=== PATIENT | female | born 1990 | race Caucasian/White ===

== ENCOUNTER → 2017-07-28 | Outpatient (CLI) | payer BC | END | disposition home or self-care (01) | LOC: LABWHC1 16:34 | PROVIDERS: ATTEND Otolaryngology | DX: J30.89 Other allergic rhinitis (principal) | CPT/HCPCS: 36415 ==

== ENCOUNTER 2019-03-25 06:05 | Inpatient (IN) | payer BC ==
[2019-03-25] MEDS ORDERED: LIDOCAINE 0.5% (PF) 5 MG/ML (50 ML SDV) SQ PRN (06:18)
[2019-03-25] MEDS ORDERED: OXYTOCIN 10 UNIT/ML 1 ML VIAL IM PRN (06:18)
[2019-03-25] MEDS ORDERED: METHYLERGONOVINE 0.2 MG/ML 1 ML AMP IM PRN (06:18)
[2019-03-25] MEDS ORDERED: TERBUTALINE 1 MG/ML VIAL SQ PRN (06:18)
[2019-03-25] MEDS ORDERED: CARBOPROST TROMETHAMINE 250 MCG/ML 1 ML AMP IM PRN (06:18)
[2019-03-25] MEDS ORDERED: OXYTOCIN 30 UNITS/500 ML NS 30 UNIT in SALINE 1 500ML.BAG IV SCH (06:30)
[2019-03-25] MEDS: LACTATED RINGERS 1,000 ML IV SCH ×4 (06:32→23:57)
[2019-03-25 07:01] LABS: HCT 40.4 % (34.0-46.0); MCH 32.3 pg (25.0-35.0); MCHC 34.6 g/dL (31.0-37.0); MCV 93.3 fL (80.0-100.0); Mean Platelet Volume 11.8; Platelet Count 133 k/uL (150-450); RBC 4.34 m/uL (3.80-5.40); WBC 8.7 k/uL (3.8-10.6)
[2019-03-25 07:18] LABS: Eosinophils # (M) 0.26 k/uL (0-0.7); Lymphocytes # (M) 1.91 k/uL (1.0-4.8); Monocytes # (M) 0.52 k/uL (0-1.0); Neutrophils % (M) 69 %; Nucleated Red Blood Cells 0 /100 WBC (0-0); Total Cells Counted 100
[2019-03-25 07:19] LABS: Large Platelets Present
[2019-03-25] MEDS ORDERED: BUTORPHANOL 1 MG/ML 1 ML VIAL IV PRN (08:12)
--- NOTE | 2019-03-25 08:16 | P.HPOB ---
History of Present Illness H&P Date: 03/25/19 Chief Complaint: IUP @ 39 5/7 weeks This is a 28-year-old 1 para 0 at 39-5/7 weeks that presents to labor and delivery for induction of labor. Patient did conceive with Femara. Patient has a known history of hypothyroidism and has been stable with 25 g of Synthro id. This morning patient notes good movement she notes mild contractions denies loss of fluid or vaginal bleeding. On bloodwork this patient has a blood type of O+, rubella status immune, RPR nonreactive, hepatis B surface antigen negative, HIV negative, 1 hour gestational diabetes screen 122, group beta strep +03/01/19. Review of Systems Constitutional: Denies chills, Denies fatigue, Denies fever Ears, nose, mouth and throat: Denies headache Cardiovascular: Reports leg edema Respiratory: Denies dyspnea Gastrointestinal: Reports constipation, Denies diarrhea, Denies nausea, Denies vomiting Genitourinary: Reports Past Medical History History of Any Multi-Drug Resistant Organisms: None Reported Past Anesthesia/Blood Transfusion Reactions: No Reported Reaction Smoking Status: Never smoker - Past Family History Mother History Unknown: Yes Family Medical History: No Reported History Medications and Allergies Home Medications Medication Instructions Recorded Confirmed Type Pnv 11/Iron Fum/Folic Acid/Om3 1 each PO 03/25/19 History [Virt-Adama Dha Softgel] Allergies Allergy/AdvReac Type Severity Reaction Status Date / Time Penicillins Allergy Rash/Hives Verified 03/25/19 06:16 Exam Osteopathic Statement: *. No significant issues noted on an osteopathic structural exam other than those noted in the History and Physical/Consult. Vital Signs Temp Pulse Resp BP Pulse Ox 03/25/19 06:11 96.8 F L 97 16 112/73 97 Intake and Output 03/24/19 03/25/19 03/25/19 22:59 06:59 14:59 Other: Weight 75.75 kg Targeted physical exam is performed on this date in general this a well- nourished well-developed female in no acute distress, breathing is noted to be nonlabored heart has regular rate and rhythm, abdomen is gravid and appropriate for gestational age, heart tones are noted to be category 1 and she is justus irregularly. On cervical exam she is 2/50/-3 amniotomy is performed and clear fluid was obtained. Results Result Diagrams: 03/25/19 06:20 Abnormal Lab Results - Last 24 Hours (Table) 03/25/19 Range/Units 06:20 Plt Count 133 L (150-450) k/uL Assessment and Plan (1) Term Current Visit: Yes Status: Acute Code(s): Z34.90 - ENCNTR FOR SUPRVSN OF NORMAL , UNSP, UNSP TRIMESTER SNOMED Code(s): 85899270 (2) Positive GBS test Current Visit: Yes Status: Acute Code(s): B95.1 - STREPTOCOCCUS, GROUP B, CAUSING DISEASES CLASSD ELSR SNOMED Code(s): 589310884 Plan: Patient is admitted to labor and delivery Pitocin induction of labor is begun per hospital protocol, antibiotics are begun secondary to GBS culture being positive. Epidural versus Stadol analgesia is discussed with patient if she makes cervical change she will elect epidural. Anesthesia will be notified. Anticipate spontaneous vaginal delivery later today.
[2019-03-25] MEDS ORDERED: ROPIVACAINE 100 MG, fentaNYL (PF) 200 MCG in SODIUM CHLORIDE 0.9% 76 ML EPIDURAL ONE (13:37)
[2019-03-25] MEDS ORDERED: CITRIC ACID-SODIUM CITRATE 15 ML CUP PO ONE (19:53)
[2019-03-25] MEDS ORDERED: DEXAMETHASONE SOD PHOS (MDV) 100 MG/10 ML VIAL ONE (20:12)
[2019-03-25] MEDS ORDERED: OXYTOCIN 10 UNIT/ML 1 ML VIAL ONE (20:12)
[2019-03-25] MEDS ORDERED: ONDANSETRON 4 MG/2 ML VIAL ONE (20:12)
[2019-03-25] MEDS ORDERED: NALBUPHINE 10 MG/ML (1 ML AMP) ONE (20:12)
[2019-03-25] MEDS ORDERED: ZOLPIDEM 5 MG TAB PO PRN (20:59)
[2019-03-25] MEDS ORDERED: SIMETHICONE 80 MG CHEWABLE PO PRN (20:59)
[2019-03-25] MEDS ORDERED: METOCLOPRAMIDE 5 MG/ML 2 ML VIAL IVP PRN (20:59)
[2019-03-25] MEDS ORDERED: diphenhydrAMINE 25 MG CAP PO PRN (20:59)
[2019-03-25] MEDS ORDERED: HYDROcodone/APAP 5-325MG 1 EACH TAB PO PRN (20:59)
[2019-03-25] MEDS ORDERED: ACETAMINOPHEN IV (For NPO) 1,000 MG in EMPTY BAG 1 BAG IVPB ONE (20:59)
[2019-03-25] MEDS ORDERED: diphenhydrAMINE 50 MG/ML 1 ML VIAL IVP PRN ×2 (20:59)
[2019-03-25] MEDS ORDERED: diphenhydrAMINE 50 MG CAP PO PRN (20:59)
[2019-03-25] MEDS ORDERED: NALOXONE 0.4 MG/ML 1 ML VIAL IV PRN (20:59)
[2019-03-25] MEDS ORDERED: ONDANSETRON 4 MG/2 ML VIAL IVP PRN (20:59)
[2019-03-25] MEDS ORDERED: IBUPROFEN IV 800 MG in SODIUM CHLORIDE 0.9% 250 ML IV ONE (21:00)
[2019-03-25] MEDS ORDERED: OXYTOCIN 20 UNITS/1000 ML NS 1,000 ML IV SCH (21:00)
--- NOTE | 2019-03-25 21:05 | P.OP ---
Date of Procedure: 03/25/19 Preoperative Diagnosis: IUP at 39 and 5/sevenths weeks, arrest of dilation 9 hours Postoperative Diagnosis: same Procedure(s) Performed: primary low transverse section Anesthesia: epidural Surgeon: Solange Townsend Audit Spec #1: Tony Kaiser Estimated Blood Loss (ml): 200 IV fluids (ml): 1,200 Urine output (ml): 100 Pathology: none sent Condition: stable Disposition: other (labor suite) Indications for Procedure: this 28-year-old 1 para 0 at 39-5/7 weeks presented to labor and delivery for induction of labor this morning. Patient was noted to be 2/50/-3 station. Pitocin induction of labor was begun per hospital protocol, once regular contractions were noted amniotomy was performed and clear fluid was obtained. Patient made very minimal change around 11:00 was noted to be 3-4 cm, patient was uncomfortable at that time and requested epidural placement. Patient had epidural placed by the anesthesia department. At approximately 2100 this evening she remained 3-4 cm she was given the option of waiting versus proceeding with primary for arrest of dilation/arrest of first stage of labor patient elected primary . Operative Findings: normal uterus tubes and ovaries were appreciated girl delivered at 2032 weight of 7 lbs. 9 oz. with Apgars of 9 and 9 at one and 5 minutes respectively. Description of Procedure: patient was taken back to the operating suite where epidural anesthesia was found to be adequate. She was prepped and draped in normal sterile fashion in the dorsal supine position. A Pfannenstiel skin incision was made with the scalpel and carried through to the underlying layer of fascia. The fascia was then incised in the midline and extended laterally. Superior aspect of the fascial incision was then grasped with Angela clamps, elevated and underlying rectus muscle was dissected off sharply. Attention was then turned the inferior aspect of the fascial incision which was grasped with Angela clamps, elevated and underlying rectus muscles dissected off sharply. The rectus muscles were in the midline the peritoneum was identified and entered. The bladder blade was then inserted into the abdomen. The vesicouterine peritoneum was identified and the bladder flap was created using sharp dissection the bladder blade was then reinserted. The scalpel was then used to enter the uterus the infant was delivered in a vertex presentation atraumatically the umbilical cord was then doubly clamped and cut and the was handed off to awaiting RN. The placenta was then removed manually than the uterus was cleared of all clots and debris. The uterine incision was then closed with 0 Vicryl in a running locked fashion from one lateral edge the other in the other lateral edge the other. Hemostasis was appreciated. The pelvis then copiously irrigated and the uterus was returned to the abdomen. Inspection the hysterotomy incision hemostasis was appreciated. The gutters were cleared of all clots and debris. The peritoneum was then loosely reapproximated and the fascia was closed with 0 Vicryl in a running fashion from one lateral edge the other. The subcutaneous tissue was irrigated hemostasis was appreciated. This was closed with 3-0 Vicryl in a running fashion. The skin was then closed with 4-0 Vicryl in a subcuticular fashion. Steri-Strips and sterile dressings were applied. All counts were correct 2 patient and infant tolerated delivery well and are resting comfortably.
[2019-03-26] MEDS: LACTATED RINGERS 1,000 ML IV SCH (00:34)
[2019-03-26 06:22] LABS: Basophils % (A) 0 %; Eosinophils # (A) 0.1 k/uL (0-0.7); Eosinophils % (A) 1 %; HCT 36.2 % (34.0-46.0); HGB 12.5 gm/dL (11.4-16.0); Lymphocytes % (A) 5 %; MCH 32.3 pg (25.0-35.0); MCHC 34.6 g/dL (31.0-37.0); MCV 93.4 fL (80.0-100.0); Mean Platelet Volume 13.2; Monocytes # (A) 0.7 k/uL (0-1.0); Monocytes % (A) 4 %; Neutrophils # (A) 17.4 k/uL (1.3-7.7); Neutrophils % (A) 90 %; Platelet Count 137 k/uL (150-450); RBC 3.88 m/uL (3.80-5.40); RDW 12.9 % (11.5-15.5); WBC 19.4 k/uL (3.8-10.6)
[2019-03-26 07:05] LABS: Large Platelets Present
[2019-03-26] MEDS: IBUPROFEN 600 MG TAB PO PRN ×3 (07:55→22:25)
[2019-03-26] MEDS: SENNOSIDES-DOCUSATE SODIUM 1 EACH TAB PO SCH ×2 (07:56→19:59)
--- NOTE | 2019-03-26 08:39 | P.PN ---
Progress Note - Text 04/05 828am 28-year-old female status post . Patient had an epidural catheter that was dose after the procedure puts Duramorph. Patient has a VAS of 1 with no complains of nausea vomiting or pruritus
--- NOTE | 2019-03-26 10:08 | P.PNOBGPC ---
Subjective - Subjective Principal diagnosis: POD 1 LTCS arrest of descent Interval history: patient has done well overnight. She is ambulating and voiding without difficulty. She is awaiting spontaneous void status post Petersen removal this morning. She is tolerating clear liquids without nausea or vomiting. She states her lochia is minimal. She is breast-feeding with some difficulty. Patient reports: Reports appetite normal, Reports pain well controlled, Reports ambulating normally [place]: doing well Objective - Vital Signs Latest vital signs: Vital Signs Temp Pulse Resp BP Pulse Ox 03/26/19 03:30 97.5 F L 73 16 126/76 98 03/25/19 23:00 97.3 F L 77 16 114/61 98 03/25/19 22:30 93 16 98/53 98 03/25/19 22:00 78 16 120/66 99 03/25/19 21:45 97.2 F L 71 16 133/78 100 03/25/19 21:30 96 16 117/62 100 03/25/19 21:15 98.3 F 99 16 126/65 100 03/25/19 21:00 97.6 F 93 16 130/60 99 Intake and Output 03/25/19 03/26/19 03/26/19 22:59 06:59 14:59 Intake Total 1400 1050 Output Total 100 1900 Balance 1300 -850 Intake: IV 1200 750 Oxytocin 20 Units/1000 ml 750 Ns 1,000 ml @ Per Protocol IV .Q0M [facility] Rx#: [id number] Oral 300 Blood Product 200 Output: Urine 100 1900 petersen 800 - Exam Extremities: Present: normal, edema Abdomen: Present: normal appearance Incision: Present: normal, dry Uterus: Present: normal, firm - Labs Labs: Abnormal Lab Results - Last 24 Hours (Table) 03/26/19 Range/Units 06:07 WBC 19.4 H (3.8-10.6) k/uL Plt Count 137 L (150-450) k/uL Neutrophils # 17.4 H (1.3-7.7) k/uL Assessment and Plan (1) Term Current Visit: Yes Status: Acute Code(s): Z34.90 - ENCNTR FOR SUPRVSN OF NORMAL , UNSP, UNSP TRIMESTER SNOMED Code(s): 28978960 (2) Positive GBS test Current Visit: Yes Status: Acute Code(s): B95.1 - STREPTOCOCCUS, GROUP B, CAUSING DISEASES CLASSD ELSWHR SNOMED Code(s): 849345806 (3) Arrest of dilation, delivered, current hospitalization Current Visit: Yes Status: Acute Code(s): O62.1 - SECONDARY UTERINE INERTIA SNOMED Code(s): 35332828 (4) S/P section Current Visit: Yes Status: Acute Code(s): Z98.891 - HISTORY OF UTERINE SCAR FROM PREVIOUS SURGERY SNOMED Code(s): 661472296 Plan: patient is doing well postoperatively. We will encourage increased ambulation, discontinue IV fluids and continue routine postoperative care. If patient continues to do well we will anticipate discharge home tomorrow.
[2019-03-27] MEDS: ACETAMINOPHEN TAB 325 MG TAB PO PRN ×2 (03:28→11:05)
[2019-03-27] MEDS: IBUPROFEN 600 MG TAB PO PRN ×2 (05:32→14:24)
[2019-03-27] MEDS: SENNOSIDES-DOCUSATE SODIUM 1 EACH TAB PO SCH (08:14)
--- NOTE | 2019-03-27 08:44 | P.DS ---
Providers Date of admission: 03/25/19 06:05 Expected date of discharge: 03/27/19 Attending physician: Solange Townsend Primary care physician: Stated None - Discharge Diagnosis(es) (1) Term Current Visit: Yes Status: Acute (2) Positive GBS test Current Visit: Yes Status: Acute (3) Arrest of dilation, delivered, current hospitalization Current Visit: Yes Status: Acute (4) S/P section Current Visit: Yes Status: Acute Hospital Course: This pleasant 28-year-old 1 para 0 presented to labor and delivery at 39-5/7 weeks for induction of labor. Patient was noted to be 2/50/-3 station. Pitocin was begun per hospital protocol. Once regular contractions were noted amniotomy was performed and clear fluid was obtained. Patient made minimal change throughout the day and after proximally 9 hours of no change patient was counseled on primary versus continuing to wait. Patient elected primary given arrest of dilation and descent. Patient was taken to the operating suite for primary low transverse section for further details on the please see the operative report. Patient's postop erative course has been uneventful. On this postop day #2 she is ambulating and voiding without difficulty. She is tolerating a regular diet without nausea or vomiting. She is breast-feeding without difficulty. She states her pain is well-controlled with ibuprofen and Tylenol. Patient Condition at Discharge: Good Plan - Discharge Summary New Discharge Prescriptions: No Action Pnv 11/Iron Fum/Folic Acid/Om3 [Virt-Adama Dha Softgel] 1 each PO Discharge Medication List Pnv 11/Iron Fum/Folic Acid/Om3 [Virt-Adama Dha Softgel] 1 each PO 03/25/19 [History] Follow up Appointment(s)/Referral(s): Solange Townsend DO [Doctor of Osteopathic Medicine] - 1 Week Patient Instructions/Handouts: (DC), (GEN) Discharge Disposition: HOME SELF-CARE
[2019-03-27] MEDS: LACTATED RINGERS 1,000 ML IV SCH (09:49)
[2019-03-27 09:51] VITALS: RESP 16
[2019-03-27 16:31] VITALS: BP 112/44; PULSE 90; TEMP 98.1
== END 2019-03-27 17:30 | disposition home or self-care (01) | DRG 788 ==
LOC: 4FBP 06:05
PROVIDERS: ADMIT Obstetrics & Gynecology Obstetrics; ATTEND Obstetrics & Gynecology Obstetrics
PROC: 3E033VJ Introduction of Other Hormone into Peripheral Vein, Percutaneous Approach (ICD-10-PCS; 2019-03-25)
PROC: 10907ZC Drainage of Amniotic Fluid, Therapeutic from Products of Conception, Via Natural or Artificial Opening (ICD-10-PCS; 2019-03-25)
PROC: 00HU33Z Insertion of Infusion Device into Spinal Canal, Percutaneous Approach (ICD-10-PCS; 2019-03-25)
PROC: 3E0R3BZ Introduction of Anesthetic Agent into Spinal Canal, Percutaneous Approach (ICD-10-PCS; 2019-03-25)
PROC: 10D00Z1 Extraction of Products of Conception, Low, Open Approach (ICD-10-PCS; principal; 2019-03-25 20:28)
DX: O99.824 Streptococcus B carrier state complicating childbirth (principal); O62.0 Primary inadequate contractions; O99.284 Endocrine, nutritional and metabolic diseases complicating childbirth; E03.9 Hypothyroidism, unspecified; E28.2 Polycystic ovarian syndrome; Z37.0 Single live birth; Z3A.39 39 weeks gestation of pregnancy; Z79.899 Other long term (current) drug therapy; Z88.0 Allergy status to penicillin
CPT/HCPCS: 85025; 86850; 86900; 86901

== ENCOUNTER 2020-08-28 06:15 | Inpatient (IN) | payer BC ==
[2020-08-25 15:36] VITALS: BMI 32.2
[2020-08-28] MEDS ORDERED: CITRIC ACID-SODIUM CITRATE 15 ML CUP PO ONE (06:44)
[2020-08-28] MEDS ORDERED: LACTATED RINGERS 1,000 ML IV SCH (06:45)
[2020-08-28] MEDS ORDERED: GENTAMICIN 280 MG in SODIUM CHLORIDE 0.9% 100 ML IVPB ONE (07:00)
[2020-08-28] MEDS ORDERED: CLINDAMYCIN 900 MG in DEXTROSE 5% IN WATER 50 ML IVPB ONE ×2 (07:00)
[2020-08-28 07:26] LABS: Basophils % (A) 0 %; Eosinophils # (A) 0.3 k/uL (0-0.7); Eosinophils % (A) 3 %; HCT 37.6 % (34.0-46.0); HGB 12.9 gm/dL (11.4-16.0); Lymphocytes # (A) 1.6 k/uL (1.0-4.8); Lymphocytes % (A) 19 %; MCHC 34.2 g/dL (31.0-37.0); MCV 93.6 fL (80.0-100.0); Mean Platelet Volume 12.2; Monocytes # (A) 0.6 k/uL (0-1.0); Monocytes % (A) 8 %; Neutrophils # (A) 5.7 k/uL (1.3-7.7); Neutrophils % (A) 68 %; Platelet Count 133 k/uL (150-450); RBC 4.02 m/uL (3.80-5.40); RDW 13.2 % (11.5-15.5); WBC 8.4 k/uL (3.8-10.6)
[2020-08-28 07:55] LABS: Large Platelets Present
[2020-08-28] MEDS ORDERED: PHENYLEPHRINE-0.9% NACL SYG 1,000 MCG/10 ML SYRINGE ONE (08:09)
[2020-08-28] MEDS ORDERED: NALBUPHINE 10 MG/ML (1 ML AMP) ONE (08:09)
[2020-08-28] MEDS ORDERED: fentaNYL (PF) 50 MCG/ML 2 ML AMP ONE (08:09)
[2020-08-28] MEDS ORDERED: MORPHINE SULFATE (PF) 0.3 MG/0.3 ML SYR ONE (08:09)
[2020-08-28] MEDS ORDERED: ONDANSETRON 4 MG/2 ML VIAL ONE (08:09)
[2020-08-28] MEDS ORDERED: METOCLOPRAMIDE 5 MG/ML 2 ML VIAL IVP PRN (09:01)
[2020-08-28] MEDS ORDERED: NALOXONE 0.4 MG/ML 1 ML VIAL IV PRN (09:01)
[2020-08-28] MEDS ORDERED: SIMETHICONE 80 MG CHEWABLE PO PRN (09:01)
[2020-08-28] MEDS ORDERED: diphenhydrAMINE 50 MG/ML 1 ML VIAL IVP PRN ×2 (09:01)
[2020-08-28] MEDS ORDERED: diphenhydrAMINE 25 MG CAP PO PRN (09:01)
[2020-08-28] MEDS ORDERED: ZOLPIDEM 5 MG TAB PO PRN (09:01)
[2020-08-28] MEDS ORDERED: ONDANSETRON 4 MG/2 ML VIAL IVP PRN (09:01)
[2020-08-28] MEDS ORDERED: diphenhydrAMINE 50 MG CAP PO PRN (09:01)
--- NOTE | 2020-08-28 09:06 | P.HPOB ---
History of Present Illness H&P Date: 08/28/20 Chief Complaint: IUP at 39 and 1/sevenths weeks, history of 1 desires repeat This is a 30-year-old 001 at 39 and one sevenths weeks that presents to labor and delivery for scheduled repeat section. Patient has been receiving routine care which has been essentially uncomplicated. Patient does have a history of hypothyroidism for which she takes Synthroid. Patient has noted good movement denies contractions vaginal bleeding or lo ss of fluid. On bloodwork this patient has a blood type of O+, rubella status immune, hepatitis B surface antigen negative, GBS negative RPR is nonreactive. Review of Systems Constitutional: Denies chills, Denies fatigue, Denies fever Ears, nose, mouth and throat: Denies headache Cardiovascular: Reports leg edema Respiratory: Denies dyspnea Gastrointestinal: Denies constipation, Denies diarrhea, Denies nausea, Denies vomiting Genitourinary: Reports Past Medical History Past Medical History: Thyroid Disorder Additional Past Medical History / Comment(s): PCOS, SCOLIOSIS History of Any Multi-Drug Resistant Organisms: None Reported Past Surgical History: Appendectomy, Breast Surgery, Section Additional Past Surgical History / Comment(s): LT BREAST BX-BENIGN, wisdom teeth removal Past Anesthesia/Blood Transfusion Reactions: Motion Sickness, Postoperative Nausea & Vomiting (PONV) Past Psychological History: No Psychological Hx Reported Smoking Status: Never smoker Past Alcohol Use History: None Reported Past Drug Use History: None Reported - Past Family History Mother History Unknown: Yes Family Medical History: No Reported History Medications and Allergies Home Medications Medication Instructions Recorded Confirmed Type Pnv 11/Iron Fum/Folic Acid/Om3 1 each PO DAILY 03/25/19 08/28/20 History [Virt-Adama Dha Softgel] Levothyroxine Sodium [Synthroid] 50 mcg PO DAILY 08/25/20 08/28/20 History Allergies Allergy/AdvReac Type Severity Reaction Status Date / Time Penicillins Allergy Rash/Hives Verified 08/28/20 07:09 Exam Osteopathic Statement: *. No significant issues noted on an osteopathic structural exam other than those noted in the History and Physical/Consult. Vital Signs Temp Pulse Resp BP Pulse Ox 08/28/20 06:43 98.0 F 76 16 119/67 98 Intake and Output 08/27/20 08/28/20 08/28/20 22:59 06:59 14:59 Other: Weight 74.843 kg Targeted physical exam is performed in this date and [employer] frames a well-nourished well-developed female in no acute distress, breathing is noted to be nonlabored, heart has regular rate and rhythm, abdomen is gravid and appropriate for gestational age, cervical exam is deferred, heart tones returned be category 1 and she is not justus. Results Result Diagrams: 08/28/20 06:55 Abnormal Lab Results - Last 24 Hours (Table) 08/28/20 Range/Units 06:55 Plt Count 133 L (150-450) k/uL Assessment and Plan (1) H/O section Current Visit: Yes Status: Acute Code(s): Z98.891 - HISTORY OF UTERINE SCAR FROM PREVIOUS SURGERY SNOMED Code(s): 581037187 (2) Term Current Visit: No Status: Acute Code(s): Z34.90 - ENCNTR FOR SUPRVSN OF NORMAL , UNSP, UNSP TRIMESTER SNOMED Code(s): 01758531 Plan: This is a 30-year-old with a history of a 1 at 39 and one sevenths weeks that presents for scheduled repeat section. Patient was counseled on risks of surgery including but not limited to infection, bleeding, damage to bladder, bowel, injury. Patient stated understanding and wished to proceed. Patient was taken back to the operating suite for scheduled repeat section.
--- NOTE | 2020-08-28 09:10 | P.OP ---
Date of Procedure: 08/28/20 Preoperative Diagnosis: IUP at 39 and one sevenths weeks, history of 1 desires repeat Postoperative Diagnosis: Same plus thin lower uterine segment. Procedure(s) Performed: Repeat section Anesthesia: spinal Surgeon: Solange Townsend Acupuncturist #1: Guillaume Saavedra Estimated Blood Loss (ml): 205 IV fluids (ml): 1,000 Urine output (ml): 200 Pathology: none sent Condition: stable Disposition: observation Indications for Procedure: History of 1 desires repeat Operative Findings: Arcuate shaped uterus appreciated, normal ovaries bilaterally. Viable male delivered at 828, weight of 7 lbs. 3 oz. with Apgars of 9 and 9 at one and 5 minutes respectively. Description of Procedure: Patient was taken back to the operating suite where spinal anesthesia was found be adequate by the anesthesia department. She was prepped and draped in normal sterile fashion in dorsal supine position. A Pfannenstiel skin incision was mad e the scalpel and carried through the underlying layer of fascia. Fascia was then incised in the midline and the incision was extended laterally. The superior aspect of the fascial incision was then grasped nhan clamps, elevated and underlying rectus muscles dissected off sharply. Attention was then turned to the inferior aspect of fascial incision which was grasped nhan clamps, elevated and underlying rectus muscles dissected off sharply. The rectus muscles were in the midline the peritoneum was identified and entered. This incision was then extended superiorly and inferiorly with good visualization the bladder. The bladder blade was then inserted into the pelvis. The bladder was noted to be far away from the operating field, and a thin lower uterine segment was appreciated. Hysterotomy incision was made with the scalpel amniotomy was performed and clear fluid was obtained. The hysterotomy incision was extended bluntly laterally. The was delivered delivered in a vertex presentation in the usual fashion, umbilical cord was doubly clamped and cut. was handed off to awaiting RN. The placenta was then delivered manually and the uterus was cleared of all clots and debris. The uterus was delivered from the abdomen and the hysterotomy incision was closed with 0 Vicryl in a running locked fashion a second imbricating suture was performed. The gutters were cleared of all clots and debris and the uterus was returned the abdomen. The hysterotomy incision was inspected hemostasis was appreciated. The rectus muscles were loosely reapproximated along with the peritoneum. The fascia was closed with 0 Vicryl in a running fashion from one lateral edge the other. The subcu cutaneous tissue was irrigated found be hemostatic and closed with 3-0 Vicryl in a running fashion. The skin was then closed with 4-0 Vicryl in a subarticular fashion. Steri-Strips and sterile dressings were applied. All counts were noted to be correct 2 at the end of the procedure. Patient and infant tolerated delivery well and are resting comfortably.
[2020-08-28] MEDS ORDERED: OXYTOCIN 30 UNITS/500 ML NS 30 UNIT in SALINE 1 500ML.BAG IV SCH (09:15)
[2020-08-28] MEDS: ACETAMINOPHEN IV (For NPO) 1,000 MG in EMPTY BAG 1 BAG IVPB SCH ×2 (09:44→18:22)
[2020-08-28] MEDS: LACTATED RINGERS 1,000 ML IV SCH ×2 (12:18→20:13)
[2020-08-28] MEDS: IBUPROFEN IV 800 MG in SODIUM CHLORIDE 0.9% 250 ML IV SCH ×2 (15:30→22:52)
[2020-08-28] MEDS: IBUPROFEN 600 MG TAB PO SCH ×2 (20:01→22:41)
[2020-08-28] MEDS: SENNOSIDES-DOCUSATE SODIUM 1 EACH TAB PO SCH (20:01)
[2020-08-29] MEDS: ACETAMINOPHEN TAB 500 MG TAB PO SCH ×3 (04:23→15:54)
[2020-08-29] MEDS: LACTATED RINGERS 1,000 ML IV SCH ×2 (04:25→11:03)
[2020-08-29] MEDS: IBUPROFEN IV 800 MG in SODIUM CHLORIDE 0.9% 250 ML IV SCH ×2 (04:58→11:03)
[2020-08-29] MEDS: IBUPROFEN 600 MG TAB PO SCH ×4 (05:42→20:01)
[2020-08-29] MEDS: LEVOTHYROXINE 50 MCG TAB PO SCH (05:42)
[2020-08-29 06:42] LABS: Basophils % (A) 0 %; Eosinophils # (A) 0.2 k/uL (0-0.7); Eosinophils % (A) 1 %; HGB 12.9 gm/dL (11.4-16.0); Lymphocytes # (A) 1.8 k/uL (1.0-4.8); Lymphocytes % (A) 14 %; MCH 32.4 pg (25.0-35.0); MCHC 34.8 g/dL (31.0-37.0); MCV 93.1 fL (80.0-100.0); Mean Platelet Volume 11.1; Monocytes # (A) 0.7 k/uL (0-1.0); Monocytes % (A) 6 %; Neutrophils # (A) 9.8 k/uL (1.3-7.7); Neutrophils % (A) 77 %; Platelet Count 152 k/uL (150-450); RBC 3.98 m/uL (3.80-5.40); RDW 12.4 % (11.5-15.5); WBC 12.6 k/uL (3.8-10.6)
--- NOTE | 2020-08-29 07:39 | P.PNOBGPC ---
Subjective - Subjective Principal diagnosis: POD 1 RCS Interval history: Patient is doing well overall. She is ambulating without difficulty, she is tolerating clear liquids without nausea or vomiting. We are awaiting spontaneous void. She did have to be straight cathed twice last night. Patient states this happened with her last delivery as well. Her lochia is minimal. Patient reports: Reports appetite normal, Reports pain well controlled, Reports ambulating normally [place]: doing well Objective - Vital Signs Latest vital signs: Vital Signs Temp Pulse Resp BP Pulse Ox 08/29/20 04:15 97.8 F 70 16 112/72 97 08/29/20 00:35 97.7 F 63 16 105/66 98 08/28/20 20:15 98.4 F 65 16 113/65 97 08/28/20 16:00 97.8 F 68 16 119/77 98 08/28/20 12:00 97.8 F 74 16 109/64 95 08/28/20 11:00 80 16 108/75 96 08/28/20 10:30 69 16 110/59 96 08/28/20 10:00 74 16 112/59 96 08/28/20 09:45 71 16 111/58 95 08/28/20 09:30 80 16 112/64 95 08/28/20 09:15 85 16 111/63 97 08/28/20 09:00 97.7 F 72 16 110/59 96 Intake and Output 08/28/20 08/29/20 08/29/20 22:59 06:59 14:59 Intake Total 300 Output Total 1000 1600 Balance -1000 -1300 Intake: Oral 300 Output: Urine 1000 1500 petersen 1500 Emesis 100 - Exam Extremities: Present: normal, edema Incision: Present: normal, dry, intact Uterus: Present: normal, firm - Labs Labs: Abnormal Lab Results - Last 24 Hours (Table) 08/29/20 Range/Units 06:20 WBC 12.6 H (3.8-10.6) k/uL Neutrophils # 9.8 H (1.3-7.7) k/uL Assessment and Plan (1) H/O section Current Visit: Yes Status: Acute Code(s): Z98.891 - HISTORY OF UTERINE SCAR FROM PREVIOUS SURGERY SNOMED Code(s): 038352440 (2) Term Current Visit: No Status: Acute Code(s): Z34.90 - ENCNTR FOR SUPRVSN OF NORMAL , UNSP, UNSP TRIMESTER SNOMED Code(s): 93913370 (3) S/P section Current Visit: No Status: Acute Code(s): Z98.891 - HISTORY OF UTERINE SCAR FROM PREVIOUS SURGERY SNOMED Code(s): 465287099 Plan: 30-year-old G2 now P2 status post repeat section. We will encourage spontaneous void this morning, Patient in the shower. Patient is doing well with pain control and will plan to continue routine postoperative care with anticipation of discharge home tomorrow.
[2020-08-29] MEDS: SENNOSIDES-DOCUSATE SODIUM 1 EACH TAB PO SCH ×2 (09:08→20:02)
[2020-08-30] MEDS: ACETAMINOPHEN TAB 500 MG TAB PO SCH ×2 (00:02→01:58)
[2020-08-30] MEDS: IBUPROFEN 600 MG TAB PO SCH (02:04)
[2020-08-30] MEDS: LEVOTHYROXINE 50 MCG TAB PO SCH (05:49)
[2020-08-30] MEDS: SENNOSIDES-DOCUSATE SODIUM 1 EACH TAB PO SCH (08:33)
--- NOTE | 2020-08-30 08:39 | P.DS ---
Providers Date of admission: 08/28/20 06:15 Expected date of discharge: 08/30/20 Attending physician: Solange Townsend Primary care physician: Stated None - Discharge Diagnosis(es) (1) H/O section Current Visit: Yes Status: Acute (2) Term Current Visit: No Status: Acute (3) S/P section Current Visit: No Status: Acute Hospital Course: This is a 30-year-old G2 now P2 status post repeat section. Patient had been receiving routine care which has been essentially uncomplicated. For full details on this patient please see the dictated history and physical. Patient had a history of a prior and desired repeat. Patient was admitted and repeat section was performed without difficulty. A thin lower uterine segment was appreciated during the surgery pat ient is aware. For further details on the please see the operative report. Patient's postoperative course has been uneventful. She did struggle with some postoperative nausea, urinary retention. Patient did have a Chambers catheter replaced after 2 unsuccessful attempts of voiding after initial Chambers catheter was removed. Patient subsequently had a successful spontaneous void on postoperative day #1. On this postoperative day #2 she is ambulating and voiding without difficult he. She is tolerating a regular diet without nausea or vomiting. She is nursing without difficulty She states her pain is well- controlled and she would like discharge home. Patient Condition at Discharge: Good Plan - Discharge Summary Discharge Rx Participant: Yes New Discharge Prescriptions: No Action Pnv 11/Iron Fum/Folic Acid/Om3 [Virt-Adama Dha Softgel] 1 each PO DAILY Levothyroxine Sodium [Synthroid] 50 mcg PO DAILY Discharge Medication List Pnv 11/Iron Fum/Folic Acid/Om3 [Virt-Adama Dha Softgel] 1 each PO DAILY 03/25/19 [History] Levothyroxine Sodium [Synthroid] 50 mcg PO DAILY 08/25/20 [History] Follow up Appointment(s)/Referral(s): Solange Townsend DO [Doctor of Osteopathic Medicine] - 2 Weeks Patient Instructions/Handouts: (DC), (GEN) Discharge Disposition: HOME SELF-CARE
[2020-08-30 09:56] VITALS: BP 109/74; PULSE 72; RESP 18; TEMP 98
== END 2020-08-30 11:30 | disposition home or self-care (01) | DRG 788 ==
LOC: 4FBP 06:15
PROVIDERS: ADMIT Obstetrics & Gynecology Obstetrics; ATTEND Obstetrics & Gynecology Obstetrics
PROC: 10D00Z1 Extraction of Products of Conception, Low, Open Approach (ICD-10-PCS; principal; 2020-08-28 08:05)
DX: O34.211 Maternal care for low transverse scar from previous cesarean delivery (principal); E03.9 Hypothyroidism, unspecified; M41.9 Scoliosis, unspecified; O99.284 Endocrine, nutritional and metabolic diseases complicating childbirth; Z37.0 Single live birth; Z3A.39 39 weeks gestation of pregnancy; Z79.890 Hormone replacement therapy
CPT/HCPCS: 85025; 86850; 86900; 86901